=== PATIENT | male | born 1975 | race Asian ===

== ENCOUNTER 2016-06-19 12:51 | Day surgery (SDC) | payer BC, OTHER ==
[2016-06-13 09:01] LABS: HEMATOCRIT 43.6 % (37.9-51.0); HGB HCT DIFFERENCE 1.4; MEAN CORPUSCULAR HEMOGLOBIN 31.1 pg (27.0-33.4); MEAN CORPUSCULAR HGB CONC 34.4 g/dL (32.0-36.0); MEAN CORPUSCULAR VOLUME 91 fl (80-97); RED BLOOD COUNT 4.82 10^6/uL (4.35-5.55); RED CELL DISTRIBUTION WIDTH 12.9 % (11.5-14.0)
[~2016-06-19 12:51] MED LIST: ACETAMINOPHEN 325 MG TABLET PO PRN; CEFAZOLIN 1 GM/D5W RTU 1 GM/50 ML RTUPB IV PRN; DEXAMETHASONE SOD PHOSPHATE INJ 4 MG/1 ML VIAL ONE; GLYCOPYRROLATE INJ 0.4 MG/2 ML VIAL ONE; KETOROLAC TROMETHAMINE 60 MG/2 ML SDV ONE; LACTATED RINGERS 1000 ML IV PRN; LIDOCAINE 0.5% INJ-PF (5 MG/ML) 50 ML SDV SUBCUT PRN; LIDOCAINE 2% INJ-PF (20 MG/ML) 10 ML AMPUL ONE; NEOSTIGMINE METHYLSULFATE 10 MG/10 ML VIAL ONE; ONDANSETRON HCL INJ/PF 4 MG/2 ML SDV ONE; ROCURONIUM BROMIDE INJ 50 MG/5 ML VIAL IV ONE; SUCCINYLCHOLINE CHLORIDE INJ 200 MG/10 ML VIAL ONE
[2016-06-19] MEDS ORDERED: BUPIVACAINE HCL 0.25 % INJ/PF (2.5 MG/1 ML) 30 ML VIAL ONE ×2 (14:01→15:54)
[2016-06-19] MEDS ORDERED: FENTANYL CITRATE INJ/PF 100 MCG/2 ML AMPUL ONE ×2 (15:53→15:54)
[2016-06-19] MEDS ORDERED: MIDAZOLAM 2 MG/2 ML INJ ONE (15:54)
[2016-06-19] MEDS ORDERED: PROPOFOL INJ 200 MG/20 ML VIAL IV ONE (15:54)
[2016-06-19] MEDS ORDERED: ACETAMINOPHEN 100 ML IV ONE (15:54)
[2016-06-19] MEDS ORDERED: DEXMEDETOMIDINE INJ 80 MCG/20 ML VIAL IV ONE (15:54)
[2016-06-19] MEDS ORDERED: MORPHINE SULFATE 10 MG/ML INJ ONE (15:55)
[2016-06-19] MEDS ORDERED: DIPHENHYDRAMINE HCL 50 MG/ML VIAL IV PRN (16:28)
[2016-06-19] MEDS ORDERED: FENTANYL CITRATE INJ/PF 100 MCG/2 ML AMPUL IV PRN ×3 (16:28)
[2016-06-19] MEDS ORDERED: MEPERIDINE HCL/PF INJ 25 MG/1 ML DISP.SYRIN IV PRN (16:28)
[2016-06-19] MEDS ORDERED: MORPHINE SULFATE 10 MG/ML INJ IV PRN (16:28)
[2016-06-19] MEDS ORDERED: OXYCODONE-ACETAMINOPHEN 5-325 MG TABLET PO PRN ×3 (16:28→17:26)
[2016-06-19] MEDS ORDERED: PROMETHAZINE HCL INJ 25 MG/1 ML VIAL IV PRN ×2 (16:28)
--- NOTE | 2016-06-19 17:23 | Operative Report ---
Operative Report DATE OF SURGERY: 06/19/16 PREOPERATIVE DIAGNOSIS: Right inguinal hernia. POSTOPERATIVE DIAGNOSIS: Right direct inguinal hernia. OPERATION: Right inguinal hernia repair with mesh SURGEON: MARIANELA WOLF ANESTHESIA: GA TISSUE REMOVED OR ALTERED: None COMPLICATIONS: None ESTIMATED BLOOD LOSS: minimal INTRAOPERATIVE FINDINGS: Direct inguinal hernia PROCEDURE: Informed consent was obtained. Patient was brought to the operating room placed on the operating room table in supine position. After satisfactory induction of general anesthesia patient's right groin was prepped and draped in usual sterile fashion. A transverse right groin incision was made and dissection carried down and the external oblique was opened along its fascial fibers thus opening the external inguinal ring. The cord structures were mobilized at the pubic tubercle. Dissection at the anterior aspect of the cord revealed no evidence of an indirect inguinal hernia. Patient did have a direct inguinal hernia the herniated preperitoneal structure was tucked back into the preperitoneal space using mattressing interrupted Vicryl sutures. A branch of the iliohypogastric nerve would've been in the way of the mesh repair therefore he was taken by clamping dividing and tying. The ilioinguinal nerve was identified and preserved during the dissection. Mesh repair was then performed with [employer] senior [employer] mesh the sling ends were brought back together in a sling -like configuration thus re-creating the internal inguinal ring. The mesh laid flat with excellent coverage. A single fixation stitch was placed at the pubic tubercle. Hemostasis appeared excellent. Marcaine was injected at the operative site. External oblique was closed over the repair using running Vicryl suture. Skin was closed with subcuticular running Monocryl suture. Patient tolerated procedure well with no apparent complications and was taken to the recovery area in stable condition.
[2016-06-19] MEDS ORDERED: RINGERS SOLUTION,LACTATED 1,000 ML IV PRN (17:26)
[2016-06-19] MEDS ORDERED: ONDANSETRON HCL INJ/PF 4 MG/2 ML SDV IV PRN (17:26)
--- NOTE | 2016-06-19 17:26 | PDOC DISCHARGE SUMMARY ---
Discharge Summary (SDC) - Discharge Final Diagnosis: Right inguinal hernia Date of Surgery: 06/19/16 Discharge Date: 06/19/16 Condition: Good Treatment or Instructions: Right inguinal hernia repair with mesh. May discharge to patient home when met discharge criteria. Follow-up with me in 2 weeks. Stay active but avoid strenuous activity. May shower in 2 days. Keep Steri-Strips on. Prescriptions: Oxycodone HCl/Acetaminophen [Percocet 7.5-325 Mg Tablet] 1 each PO Q4HP PRN #30 tablet PRN Reason: For Pain Discharge Diet: As Tolerated
[2016-06-19 19:20] VITALS: BP 110/78
== END 2016-06-19 19:20 | disposition home or self-care (01) ==
LOC: OROUT 12:51
PROVIDERS: ATTEND Surgery
PROC: 0YQ50ZZ Repair Right Inguinal Region, Open Approach (ICD-10-PCS; principal; 2016-06-19 15:00)
DX: K40.90 Unilateral inguinal hernia, without obstruction or gangrene, not specified as recurrent (principal); J30.2 Other seasonal allergic rhinitis
CPT/HCPCS: 36415; 85027; 49505; C1781; J2250; J0690; J3490 ×3; J1100; J1885; J3010; J0330; J2405; J2704; J0131; 830; J2270

== ENCOUNTER 2017-09-10 12:42 | Emergency (ER) | payer BC ==
--- NOTE | 2017-09-10 13:49 | RADIOLOGY REPORT (SQ) ---
EXAM DESCRIPTION: FOREARM LEFT COMPLETED DATE/TIME: 09/10/2017 1:29 pm REASON FOR STUDY: bed 16 fall +deformity COMPARISON: None. NUMBER OF VIEWS: Two views. TECHNIQUE: Two radiographic images acquired of the left forearm, including elbow and wrist in at [address] one projection. LIMITATIONS: None. FINDINGS: MINERALIZATION: Normal. BONES: Comminuted acute nondisplaced nonangulated distal left radius metaphysis intra-articular fract ure with minimal depression of the articular surface. Bone fragment over the ventral aspect of the elbow on lateral view, this likely represents an acute f racture fragment, donor site not identified. Follow-up four view left elbow 0 recommended. SOFT TISSUES: No obvious swelling or foreign body. OTHER: Findings discussed with Dr. Buitrago in the emergency room IMPRESSION: Comminuted acute nondisplaced nonangulated distal left radius metaphysis intra-articular fracture with minimal depression of the articular surface TECHNICAL DOCUMENTATION: JOB ID: [id number] [employer]- All Rights Reserved Reading location - IP/workstation name: [email or web address]
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
--- NOTE | 2017-09-10 14:33 | RADIOLOGY REPORT (SQ) ---
EXAM DESCRIPTION: ELBOW LEFT OVER 2 VIEWS COMPLETED DATE/TIME: 09/10/2017 2:10 pm REASON FOR STUDY: FALL, DEFORMITY COMPARISON: None. NUMBER OF VIEWS: Four views. TECHNIQUE: AP, lateral, and both oblique radiographic images acquired of the left elbow. LIMITATIONS: None. FINDINGS: MINERALIZATION: Normal. BONES: There is a fracture of the coronoid process of the ulna. JOINT: The lateral view is not optimally positioned. There does not appear to be a large effusion, h owever. SOFT TISSUES: No soft tissue swelling. No foreign body. OTHER: No other significant finding. IMPRESSION: There is a fracture of the coronoid process of the ulna. TECHNICAL DOCUMENTATION: JOB ID: [id number] [email or web address]- All Rights Reserved Reading location - IP/workstation name: [email or web address]
--- NOTE | 2017-09-10 14:36 | RADIOLOGY REPORT (SQ) ---
EXAM DESCRIPTION: WRIST LEFT 3 VIEWS COMPLETED DATE/TIME: 09/10/2017 2:10 pm REASON FOR STUDY: FALL, DEFORMITY COMPARISON: None. NUMBER OF VIEWS: Three views. TECHNIQUE: AP, lateral, and oblique radiographic images acquired of the left wrist. LIMITATIONS: None. FINDINGS: MINERALIZATION: Normal. BONES: There is a fracture involving the dorsal articular surface of the distal radius. This is best seen on the lateral view. Approximately 25% of the distal radial articular surface is involved. SOFT TISSUES: No soft tissue swelling. No foreign body. OTHER: No other significant finding. IMPRESSION: Fracture of the dorsal articular surface of the distal radius. TECHNICAL DOCUMENTATION: JOB ID: [id number] [employer]- All Rights Reserved Reading location - IP/workstation name: [email or web address]
[2017-09-10 16:24] VITALS: BP 122/74
== END 2017-09-10 17:00 | disposition home or self-care (01) ==
LOC: ER 12:42
DX: S52.042A Displaced fracture of coronoid process of left ulna, initial encounter for closed fracture (principal); S52.572A Other intraarticular fracture of lower end of left radius, initial encounter for closed fracture; W17.89XA Other fall from one level to another, initial encounter
CPT/HCPCS: 99284